=== PATIENT | female | born 1995 | race African-American/Black ===

== ENCOUNTER 2017-05-07 23:46 | Day surgery (SDC) | payer OTHER ==
[2017-05-08 00:22] VITALS: BMI 34.4
--- NOTE | 2017-05-08 05:34 | CON ---
DATE OF SERVICE: 05/08/2017 PRIMARY OB: Dr. Lynne at [facility]. CHIEF COMPLAINT: Abdominal tightness. HISTORY OF PRESENT ILLNESS: The patient is a 22-year-old G1, P0 female with an intrauterine pregnanc y at 35 weeks gestation, who presents to labor and delivery today after experiencing abdominal tightn ess that is persisted since about 1:00 this afternoon. The patient denies any contractions that come and go. She denies vaginal bleeding or leakage of fluid. She denies any illness, fever or recent f all. She denies any chest pain. She does have some baseline shortness of breath that she describes to the . She denies any new rash, any hip problems or knee problems, any vaginal bleeding o r leakage of fluid, any urinary urgency or frequency. PAST MEDICAL HISTORY: Negative. PAST SURGICAL HISTORY: Negative. ALLERGIES: No known drug allergies. SOCIAL HISTORY: Denies drug, alcohol or tobacco use. OB LABS: Unavailable at this time. MEDICATIONS: vitamins. REVIEW OF SYSTEMS: Per HPI. PHYSICAL EXAMINATION: VITAL SIGNS: Blood pressure 118/75, heart rate of 88, respiratory rate of 20, temperature 98.4. GENERAL: She appears to be in no acute distress. She is alert and oriented, and cooperative and ple asant to interact with. HEENT: Head is normocephalic, atraumatic. LUNGS: Clear to auscultation bilaterally. HEART: Regular rate and rhythm. ABDOMEN: Soft, gravid, nontender. EXTREMITIES: Nontender, nonedematous. CERVICAL: She is fingertip, thick and high per nursing staff. heart tracing performed for threatened labor. Baseline is noted in the 140s with moder ate long-term variability, positive accelerations, no decelerations. Tocometer does not show any con tractions. ASSESSMENT AND PLAN: The patient is a 22-year-old with an intrauterine at 35 weeks and 5 d ays who is seen by Dr. Lynne at [facility] and is presented for abdominal tightness when she st ands. Reassurance has been given to the patient and has been instructed to follow up with her primar y OB as scheduled on 05/12/2017. She has all been given labor precautions. Fetus has a clara gory 1 tracing.
== END 2017-05-08 01:00 | disposition home or self-care (01) ==
LOC: L&D/OP 23:46
PROVIDERS: ATTEND Obstetrics & Gynecology
DX: O99.89 Other specified diseases and conditions complicating pregnancy, childbirth and the puerperium (principal); R10.9 Unspecified abdominal pain; Z3A.35 35 weeks gestation of pregnancy; Z79.899 Other long term (current) drug therapy

== ENCOUNTER 2018-07-27 04:01 | Emergency (ER) | payer OTHER, SELFPAY | END 2018-07-27 05:15 | disposition home or self-care (01) | LOC: ERS 04:01 | DX: J11.1 Influenza due to unidentified influenza virus with other respiratory manifestations (principal) | CPT/HCPCS: 99283 ==

== ENCOUNTER 2018-09-05 10:20 | Emergency (ER) | payer SELFPAY | END 2018-09-05 10:52 | disposition home or self-care (01) | LOC: ERS 10:20 | DX: H65.93 Unspecified nonsuppurative otitis media, bilateral (principal); J30.9 Allergic rhinitis, unspecified | CPT/HCPCS: 99283 ==

== ENCOUNTER 2019-05-23 17:44 | Emergency (ER) | payer SELFPAY ==
[2019-05-23 18:24] LABS: Bilirubin Negative (Negative); Blood, Urine Negative (Negative); Clarity Clear (Clear); Glucose, Urine (Dipstick) Normal (Negative); Leukocyte Negative Leu/uL (Negative); Nitrite Negative (Negative); Protein, Urine (Dipstick) Negative (Neg-Trace); Urobilinogen Normal mg/dL (Less than 2)
[2019-05-23 18:27] LABS: #Basophils 0.2 thou/uL (0.0-0.2); #Eosinphils 0.3 thou/uL (0.0-0.7); #Lymphocytes 4.4 thou/uL (1.20-3.40); #Monocytes 0.8 thou/uL (0.11-0.59); #Neutrophils 4.9 thou/uL (1.40-6.50); %Basophils 1.6 % (0.0-1.0); %Eosinophils 3.2 % (0.0-10.0); %Lymphocytes 41.4 % (21.0-51.0); %Monocytes 7.5 % (0.0-10.0); %Neutrophils 46.4 % (42.0-75.0); Hemoglobin 13.8 g/dL (12.0-16.0); Mean Corpuscular HGB CONC 33.4 g/dL (32.0-36.0); Mean Corpuscular Hemoglobin 28.5 pg (27.0-31.0); Mean Corpuscular Volume 85.4 fL (78.0-98.0); Mean Platelet Volume 7.2 fL (7.4-10.4); Platelet Count 355 thou/uL (130-400); RBC Distribution Width 11.7 % (11.5-14.5); Red Blood Cell (RBC) Count 4.85 mill/uL (4.20-5.40); White Blood Cell (WBC) Count 10.5 thou/uL (4.8-10.8)
[2019-05-23 18:27] LABS: Pregnancy Test - Urine (BHCG) Negative (Negative); Pregu Control Background? CLEAR/WHITE (CLR/WHITE); Pregu Control Bar Appear? YES (CONTROL BAR); Specific Gravity 1.028 (1.002-1.036)
[2019-05-23 18:47] LABS: ALT (SGPT) 14 U/L (8-55); AST (SGOT) 15 U/L (5-34); Albumin 4.4 g/dL (3.5-5.0); Alkaline Phosphatase 86 U/L (40-110); Anion Gap 13 mmol/L (10-20); BUN (Urea Nitrogen) 17 mg/dL (7.0-18.7); Bilirubin, Total 0.3 mg/dL (0.2-1.2); Calc. Creatinine Clearance 0 mL/min (70-130); Calcium 10.2 mg/dL (7.8-10.44); Carbon Dioxide 24 mmol/L (22-29); Chloride 106 mmol/L (98-107); Estimated GFR-MDRD Greater than 90; Globulin 3.2 g/dL (2.4-3.5); Glucose 94 mg/dL (70-105); Lipase 16 U/L (8-78); Potassium 3.8 mmol/L (3.5-5.1); Protein, Total 7.6 g/dL (6.0-8.3); Sodium 139 mmol/L (136-145)
== END 2019-05-23 20:25 | disposition home or self-care (01) ==
LOC: ERS 17:44
DX: R51 Headache (principal); R10.13 Epigastric pain
CPT/HCPCS: 36415; 80053; 81003; 81025; 83690; 85025; 99284